=== PATIENT | male | born 1990 | race Caucasian/White ===

== ENCOUNTER 2019-01-09 02:44 | Emergency (ER) | payer SELFPAY ==
[2019-01-09] MEDS ORDERED: Famotidine TAB* 20 MG PO ONE (03:02)
[2019-01-09] MEDS ORDERED: methylPREDNISolone 125 MG* 2 ML VIAL IM ONE (03:02)
[2019-01-09] MEDS ORDERED: diPHENhydraMINE IV* 50 MG/ML 1 ml VIAL (BENADRYL) IM ONE (03:02)
--- NOTE | 2019-01-09 03:04 | ED ---
Allergic Reaction/Systemic - HPI Summary HPI Summary: Pt is a 28 y/o M presenting to the ED with a chief complaint of a bee sting. He states he was stung by a bee when he was at work, and nothing initially happened. About 5-10 minutes later, he began experiencing edema and a slight rash on his face where he was stung. He denies a rash being present anywhere else, throat tightening, or difficulty breathing, and he has not had a reaction like this before. - History of Current Complaint Chief Complaint: EDFacialInjury Time Seen by Provider: 01/09/19 02:57 Hx Obtained From: Patient Onset/Duration: Sudden Onset, Started hours ago, Still Present Timing: Constant, Lasting Hours Severity Initially: Mild Severity Currently: Moderate Pain Intensity: 5 Pain Scale Used: 0-10 Numeric Location: Diffuse - face Character: Swelling, Hives Aggravating Factor(s): Nothing Alleviating Factor(s): Nothing Associated Signs And Symptoms: Positive: Rash - just his face, nowhere else. Negative: Difficulty Breathing, Throat Tightening - Allergies/Home Medications Allergies/Adverse Reactions: Allergies Allergy/AdvReac Type Severity Reaction Status Date / Time Penicillins Allergy Unknown Verified 01/09/19 02:48 Reaction Details shellfish derived Allergy Anaphylatic Verified 01/09/19 02:48 Shock PMH/Surg Hx/FS Hx/Imm Hx Previously Healthy: Yes Endocrine/Hematology History: Denies: Hx Diabetes Cardiovascular History: Denies: Hx Hypertension Infectious Disease History: No Infectious Disease History: Denies: Traveled Outside the [place] in Last 30 Days - Family History Known Family History: Negative: Respiratory Disease - Social History Alcohol Use: None Hx Substance Use: No Substance Use Type: Reports: None Hx Tobacco Use: No Smoking Status (MU): Never Smoked Tobacco Review of Systems Negative: Shortness Of Breath Positive: Edema - in face Positive: Rash - in face, nowhere else All Other Systems Reviewed And Are Negative: Yes Physical Exam - Summary Physical Exam Summary: Constitutional: Well-developed, Well-nourished, Alert. (-) Distressed Skin: Warm, Dry. There is a sting wound on the L upper lip, the L portion of the lip surrounding the sting wound is edematous. There is edema of the L face. No erythema or rash other than that; skin is otherwise nml. HENT: Normocephalic; Atraumatic Eyes: Conjunctiva normal Neck: Musculoskeletal ROM normal neck. (-) JVD, (-) Stridor, (-) Tracheal deviation Cardio: Rhythm regular, rate normal, Heart sounds normal; Intact distal pulses; The pedal pulses are 2+ and symmetric. Radial pulses are 2+ and symmetric. (-) Murmur Pulmonary/Chest wall: Effort normal. (-) Respiratory distress, (-) Wheezes, (-) Rales, no stridor, nml lung sounds Abd: Soft, (-) tenderness, (-) Distension, (-) Guarding, (-) Rebound Musculoskeletal: (-) Edema Lymph: (-) Cervical adenopathy Neuro: Alert, Oriented x3 Psych: Mood and affect Normal Triage Information Reviewed: Yes Vital Signs On Initial Exam: Initial Vitals Temp Pulse Resp BP Pulse Ox 97.4 F 54 18 135/75 98 01/09/19 02:47 01/09/19 02:47 01/09/19 02:47 01/09/19 02:47 01/09/19 02:47 Vital Signs Reviewed: Yes Diagnostics - Vital Signs Vital Signs Temp Pulse Resp BP Pulse Ox 01/09/19 02:47 97.4 F 54 18 135/75 98 - Laboratory Lab Statement: Any lab studies that have been ordered have been reviewed, and results considered in the medical decision making process. Re-Evaluation - Re-Evaluation 1st re-eval Re-Evaluation Time: 04:35 Change: Improved Comment: Pt's bee sting edema looks much better. Allergic Reaction Course/Dx - Course Course Of Treatment: Pt is a 28 y/o M presenting to the ED with a chief complaint of a bee sting. About 5-10 minutes later, he began experiencing edema and a slight rash on his face where he was stung. He denies a rash being present anywhere else, and he has not had a reaction like this before. The pt' s edema has drastically reduced and he states he feels much better. He will be sent home with dx of bee sting. He is stable and agreeable with this plan. - Diagnoses Provider Diagnoses: Bee sting Discharge - Sign-Out/Discharge Documenting (check all that apply): Patient Departure Patient Received Moderate/Deep Sedation with Procedure: No - Discharge Plan Condition: Stable Disposition: HOME Prescriptions: EPINEPHrine [Epipen 2-Scot] 0.3 mg IM ONCE PRN #1 inj PRN Reason: Allergy Symptoms Loratadine [Claritin 10 MG CAP] 10 mg PO DAILY #10 cap predniSONE [Prednisone 20 MG TAB] 40 mg PO DAILY 5 Days #10 tablet Patient Education Materials: Insect Bite or Sting (ED), Allergies (ED) Print Language: GREENLANDIC Referrals: [facility] [Outside] Additional Instructions: Please follow up with your primary care provider within the next 2-3 days. Return to the emergency department with any new or worsening symptoms. - Billing Disposition and Condition Condition: STABLE Disposition: Home - Attestation Statements Document Initiated by Scribe: Yes Documenting Scribe: Kaykay Haines Provider For Whom Portilloibisha is Documenting (Include Credential): Domonique Harrell MD. Scribe Attestation: Kaykay Gonzalez, scribed for Domonique Ng MD. on 01/09/19 at 0504. Scribe Documentation Reviewed: Yes Provider Attestation: The documentation as recorded by the scribeKaykay accurately reflects the service I personally performed and the decisions made by me, Domonique Ng MD. Status of Scribe Document: Viewed
[2019-01-09 05:20] VITALS: BP 141/86
== END 2019-01-09 05:19 | disposition home or self-care (01) ==
LOC: ED 02:44
DX: T63.441A Toxic effect of venom of bees, accidental (unintentional), initial encounter (principal); Y92.89 Other specified places as the place of occurrence of the external cause; Y99.0 Civilian activity done for income or pay; Z88.0 Allergy status to penicillin
CPT/HCPCS: 96372; 99282; A9270-GY; J1200; J2930